=== PATIENT | male | born 1995 | race African-American/Black ===

== ENCOUNTER 2016-11-29 03:32 | Emergency (ER) | payer SELFPAY ==
[~2016-11-29] VITALS: Ht 170.2 cm; Wt 65.9 kg
[2016-11-29 03:33] VITALS: TEMP 97.1
[2016-11-29 06:05] VITALS: BP 140/74; PULSE 73
== END 2016-11-29 06:05 | disposition home or self-care (01) ==
LOC: COL.ER 03:32
DX: F10.129 Alcohol abuse with intoxication, unspecified (principal)